=== PATIENT | male | born 1980 | race Caucasian/White ===

== ENCOUNTER 2016-10-08 09:31 | Inpatient (IN) | payer OTHER ==
--- NOTE | 2016-10-08 10:16 | ED ---
Psychiatric Complaint - HPI Summary HPI Summary: 35 M w/ PMH of depression presents with suicidal ideation. He states he was with a friend last night and they started to contemplate the idea of suicide. They did not come up with a plan. He says he is under more stress recently as his grandmother just based a way. The only medication he is on is ambien which he stopped many days ago due to weird dreams. He is a recovering alcoholic and his last drink was two nights ago. He is being [facility]. He also use marijuana. His sister has a history of bipolar - History Of Current Complaint Chief Complaint: EDMentalHealth Time Seen by Provider: 10/08/16 09:58 - Allergies/Home Medications Allergies/Adverse Reactions: Allergies Allergy/AdvReac Type Severity Reaction Status Date / Time No Known Allergies Allergy Verified 11/21/15 15:53 Home Medications: Home Medications Mirtazapine TAB* [Remeron TAB*] 30 mg PO DAILY 10/08/16 [History Confirmed 10/08] Zolpidem TAB* [Ambien TAB*] 5 mg PO BEDTIME PRN 10/08/16 [History Confirmed ] PMH/Surg Hx/FS Hx/Imm Hx Endocrine/Hematology History: Denies: Hx Anticoagulant Therapy, Hx Diabetes, Hx Thyroid Disease, Other Endocrine/Hematological Disorders Cardiovascular History: Denies: Hx Hypertension, Hx Pacemaker/ICD, Other Cardiovascular Problems/ Disorders Respiratory History: Denies: Hx Asthma, Hx Chronic Obstructive Pulmonary Disease (COPD), Other Respiratory Problems/Disorders GI History: Denies: Other GI Disorders History: Denies: Hx Renal Disease, Other Problems/Disorders Musculoskeletal History: Denies: Other Musculoskeletal History Sensory History: Denies: Other Sensory Impairments Opthamlomology History: Denies: Other Sensory Impairments Neurological History: Denies: Hx Dementia, Hx Seizures, Other Neuro Impairments/Disorders Psychiatric History: Reports: Hx Anxiety, Hx Attention Deficit Hyperactivity Disorder, Hx Depression, Hx Inpatient Treatment, Hx Community Mental Health Tx, Hx Suicide Attempt, Hx Substance Abuse - states polysubstance abuse daily Denies: Hx Eating Disorder, Hx of Violent Episodes Against Others, Other Psychiatric Issues/Disorders Infectious Disease History: Denies: Hx Clostridium Difficile, Hx Hepatitis, Hx Human Immunodeficiency Virus (HIV), Hx Shingles, Hx Tuberculosis, History Other Infectious Disease, Traveled Outside the [place] in Last 30 Days - Family History Known Family History: Positive: None, Other - depression-sister; EToH abuse - father, bipolar sister - Social History Alcohol Use: None Substance Use Type: Reports: None Smoking Status (MU): Former Smoker Have You Smoked in the Last Year: Yes Review of Systems Negative: Fever Negative: Chest Pain Negative: Shortness Of Breath Positive: Depressed All Other Systems Reviewed And Are Negative: Yes Physical Exam Appearance: Positive: Well-Appearing Skin: Positive: Warm, Dry Head/Face: Positive: Normal Head/Face Inspection Eyes: Positive: Normal, Conjunctiva Clear ENT: Positive: Normal ENT inspection, Pharynx normal, TMs normal Neck: Positive: Supple, Nontender Respiratory/Lung Sounds: Positive: Clear to Auscultation, Breath Sounds Present Cardiovascular: Positive: Normal, RRR Abdomen Description: Positive: Nontender, Soft Bowel Sounds: Positive: Present Psychiatric: Positive: Normal Diagnostics - Laboratory Result Diagrams: 10/08/16 10:05 10/08/16 10:05 Lab Statement: Any lab studies that have been ordered have been reviewed, and results considered in the medical decision making process. Course/Dx - Course Course Of Treatment: 35 M w/ PMH of depression presents with sucidial ideations. He said that is started last night after he met with a close friend who started to mention the thought of suicide. They did not come up with a plan. He is an alcholic who is trying to get into rehab. he is clear for mental health exam, MHE will admit voluntarily - Differential Dx/Clinical Impression Differential Diagnosis/HQI/PQRI: Positive: Anxiety, Depression, Suicidal Ideation Provider Diagnosis: Persistent mood [affective] disorder, unspecified Discharge - Discharge Plan Condition: Stable Disposition: ADMITTED TO [facility]
[2016-10-08 10:17] LABS: Urine Bacteria Absent (Absent); Urine Bilirubin Negative (Negative); Urine Glucose Negative (Negative); Urine Nitrite Negative (Negative)
[2016-10-08 10:27] LABS: Hematocrit 41 % (42-52); Hemoglobin 14.2 g/dl (14.0-18.0); Mean Corpuscular HGB Conc 35 g/dl (31-36); Mean Corpuscular Hemoglobin 31 pg (27-31); Mean Corpuscular Volume 89 fL (80-94); Mean Platelet Volume 7 um3 (7.4-10.4); Red Blood Count 4.59 10^6/ul (4.0-5.4); Red Cell Distribution Width 13 % (10.5-15); White Blood Count 10.3 10^3/ul (3.5-10.8)
[2016-10-08 10:29] LABS: Benzodiazepine Urine Screen None Detected (None Detect)
[2016-10-08 10:37] LABS: ALT 38 U/L (7-52); AST 50 U/L (13-39); Albumin 4.6 g/dL (3.2-5.2); Alkaline Phosphatase 54 U/L (34-104); Anion Gap 8 mmol/L (2-11); BUN/Creatinine Ratio 9.2 (8-20); Blood Urea Nitrogen 10 mg/dL (6-24); CO2 Carbon Dioxide 27 mmol/L (22-32); Calcium 9.2 mg/dL (8.6-10.3); Chloride 98 mmol/L (101-111); EGFR African American 99.6 (>60); EGFR Non-African American 77.4 (>60); Globulin 2.6 g/dL (2-4); Glucose 113 mg/dL (70-100); Potassium 3.2 mmol/L (3.5-5.0); Sodium 133 mmol/L (133-145); Total Protein 7.2 g/dL (6.4-8.9)
[2016-10-08 10:56] LABS: Acetaminophen < 15 mcg/mL; Alcohol < 10 mg/dL (<10); Salicylate < 2.50 mg/dL (<30)
[2016-10-08 11:04] LABS: TSH (Thyroid Stimulating Horm) 2.08 mcIU/mL (0.34-5.60)
[2016-10-08] MEDS ORDERED: Mouth Piece, Nicotine* 1 EACH CARTRIDGE INH PRN (17:14)
--- NOTE | 2016-10-08 18:25 | ED ---
I, Moises Gagnon, scribed for Emile Weiss MD on 10/08/16 at 1714 . Progress - Progress Note Progress Note: Pt signed paperwork for voluntary admission. Dx: depression with SI. Pt is stable and will be admitted to mental health unit. - Consult/PCP Time Called: 10:50 Course/Dx - Course Course Of Treatment: 35 M w/ PMH of depression presents with sucidial ideations. He said that is started last night after he met with a close friend who started to mention the thought of suicide. They did not come up with a plan. He is an alcholic who is trying to get into rehab. he is clear for mental health exam - Diagnoses Provider Diagnoses: Persistent mood [affective] disorder, unspecified The documentation as recorded by the jessicaibeKalin Karl accurately reflects the service I personally performed and the decisions made by me, Emile Weiss MD.
[2016-10-08] MEDS ORDERED: diPHENhydraMINE PO* 50 MG PO PRN (18:41)
[2016-10-08] MEDS: Mirtazapine TAB* 15 MG PO SCH (20:59)
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
[2016-10-09] MEDS: Nicotine Inhaler* 10 MG AMP INH PRN (16:11)
[2016-10-09] MEDS: Mirtazapine TAB* 15 MG PO SCH (21:02)
[2016-10-09] MEDS: Nicotine Patch Removal NOTE FOLLOW UP SCH (21:03)
[2016-10-10] MEDS: Nicotine PATCH 21 MG/24 HR* PATCH TRANSDERM SCH (09:31)
[2016-10-10] MEDS: Nicotine Inhaler* 10 MG AMP INH PRN (15:25)
[2016-10-10] MEDS ORDERED: Al Hydrox/Mg Hydrox/Simet LIQ* 30 ML UDC PO PRN (19:00)
[2016-10-10] MEDS ORDERED: Ibuprofen TAB* 400 MG PO ONE (19:00)
[2016-10-10] MEDS: Mirtazapine TAB* 15 MG PO SCH (20:13)
[2016-10-10] MEDS: Nicotine Patch Removal NOTE FOLLOW UP SCH (22:30)
[2016-10-11] MEDS: Nicotine Inhaler* 10 MG AMP INH PRN ×2 (08:28→18:03)
[2016-10-11] MEDS: Nicotine PATCH 21 MG/24 HR* PATCH TRANSDERM SCH (08:30)
[2016-10-11] MEDS: Nicotine Patch Removal NOTE FOLLOW UP SCH (20:45)
[2016-10-11] MEDS: Mirtazapine TAB* 15 MG PO SCH (20:45)
[2016-10-12] MEDS: Nicotine PATCH 21 MG/24 HR* PATCH TRANSDERM SCH (08:39)
[2016-10-12] MEDS: Nicotine Inhaler* 10 MG AMP INH PRN (08:39)
[2016-10-12 09:40] VITALS: BP 134/78
--- NOTE | 2016-10-12 12:41 | DS ---
Subjective - Subjective Service Types: 39326 Hosp DC Day Mgmt simple under 30 min Discharge Date: 10/12/16 Discharge Planning - Discharge Planning Medications: Current Medications Al Hydrox/Mg Hydrox/Simethicone (Maalox Plus*) 30 ml PO Q4H PRN PRN Reason: INDIGESTION Last Admin: 10/11/16 17:22 Dose: 30 ml Device (Nicotine Mouth Piece*) 1 each INH Q2H PRN PRN Reason: USE WITH NICOTINE CARTRIGE Last Admin: 10/09/16 16:10 Dose: 1 each Diphenhydramine HCl (Benadryl Po*) 50 mg PO BEDTIME PRN PRN Reason: SLEEP Mirtazapine (Remeron Tab*) 15 mg PO BEDTIME [facility] Last Admin: 10/11/16 20:45 Dose: 15 mg Nicotine (Nicotine Inhaler*) 10 mg INH Q2H PRN PRN Reason: CRAVING Last Admin: 10/12/16 08:39 Dose: 10 mg Nicotine (Nicotine Patch 21 Mg/24 Hr*) 1 patch TRANSDERM DAILY@0800 [facility] Last Admin: 10/12/16 08:39 Dose: 1 patch Pharmacy Profile Note (Nicotine Patch Removal Note*) 1 note FOLLOW UP 2100 [facility] Last Admin: 10/11/16 20:45 Dose: 1 note Discharge Planning: Prescriptions provided for discharge [] Yes [] No Follow up care details as per social work arrangements. Patient response to discharge plan: [] eager for discharge [] agreeable with discharge plan [] ambivalent about discharge [] disagrees with discharge today
--- NOTE | 2016-10-12 13:05 | PN ---
[facility]: Group Therapy Note - Service Type Service Type: 30027 Group Psychotherapy - Cognitive Behavioral Group Therapy ( CBT):Patient was attentive and participatory in CBT programming this morning, and remained in good behavioral control. Patient expressed positive insights regarding relevant treatment interventions and goals.
--- NOTE | 2016-10-12 13:05 | PN ---
Subjective - Subjective Service Type: 24044 Hosp care 15 min low complexity Subjective: LATE ENTRY FOR 10/11 Blaine reported feeling much better - free of ongoing emotional pain or suicidal ideation, able to cope, forward thinking. He expressed readiness for discharge and proactively worked on crisis bed calls. Objective - Appearance Appearance: Obese Hygiene: Normal Grooming: Well Kept - Behavior Psychomotor Activities: Normal - Attitude and Relatedness Attitude and Relatedness: Cooperative Eye Contact: Good - Speech Quality: Unpressured Latencies: Normal Quantity: Appropriate - Mood Patient's Decription of Mood: "Fine" - Affect Observed Affect: Non-labile Affect Consistent with: Euthymia - Thought Process Patient's Thought Process: Coherent, Goal Directed Thought Content: No Passive Wish, No Suicidal Planning, No Homicidal Ideation, No Paranoid Ideation - Sensorium Experiencing Hallucinations: No, Sensorium is Clear - Level of Consciousness Level of Consciousness: Alert - Impulse Control Impulse Control: Intact - Insight and Judgement Insight and Judgement: Fair Assessment - Assessment Merits Inpatient Hospitalization: Consolidate Improvements, For Discharge Planning Inpatient DSM-IV Dx: Alcohol use disorder with induced-mood symptoms; cannabis use disorder; adjustment disorder, not otherwise specified. Clinical Impression: 35-year male with a history of suicidal behavior, multiple psychiatric hospitalizations, chronic substance use disorders, and substance- induced crisis. He presented typically with recent alcohol and marijuana use and situational stressors and loss with the of his grandmother, his homelessness, and loss of a job. He was seeking help and had already made some arrangements to move towards rehab. Stabilized here. Clinically improved with resolution of distress and corrected mood symptoms and impairment. This was clearly a crisis of substance effects and adjustment. We can appropriately advance discharge planning. Medication management - restarted Remeron based on reconciliation of prior regimen. We will provide Benadryl on a p.r.n. basis for insomnia. Plan - Plan Treatment Plan: Name: BLAINE Bardales [place] Birthdate: 1980 [id number] Continued Medication Management: Consider Medication Medications: Current Medications Al Hydrox/Mg Hydrox/Simethicone (Maalox Plus*) 30 ml PO Q4H PRN PRN Reason: INDIGESTION Last Admin: 10/11/16 17:22 Dose: 30 ml Device (Nicotine Mouth Piece*) 1 each INH Q2H PRN PRN Reason: USE WITH NICOTINE CARTRIGE Last Admin: 10/09/16 16:10 Dose: 1 each Diphenhydramine HCl (Benadryl Po*) 50 mg PO BEDTIME PRN PRN Reason: SLEEP Mirtazapine (Remeron Tab*) 15 mg PO BEDTIME [facility] Last Admin: 10/11/16 20:45 Dose: 15 mg Nicotine (Nicotine Inhaler*) 10 mg INH Q2H PRN PRN Reason: CRAVING Last Admin: 10/12/16 08:39 Dose: 10 mg Nicotine (Nicotine Patch 21 Mg/24 Hr*) 1 patch TRANSDERM DAILY@0800 [facility] Last Admin: 10/12/16 08:39 Dose: 1 patch Pharmacy Profile Note (Nicotine Patch Removal Note*) 1 note FOLLOW UP 2100 [facility] Last Admin: 10/11/16 20:45 Dose: 1 note - Discharge Plan Discharge Plan: Drug/Alcohol Rehab
--- NOTE | 2016-10-12 13:13 | DS ---
Subjective - Subjective Service Types: 21209 [facility] Day Mgmt simple under 30 min Discharge Date: 10/12/16 Subjective: Blaine expressed readiness for discharge. His plan is to return home and work with [facility] on next treatment options. He affirmed he is safe, free of emotional pain or inapproprate anxiety. He denied any suicidal ideation. He said he's motivated for sobriety. We discussed medication options - he sees no need for any psychiatric medicines, but was interested in Antabuse based on its reputation. I explained it's i/r/b and profile, with guidance on need to avoid alcohol in all products. He requested a prescription. He said he sees no barriers to routine or emergency help. Objective - Appearance Appearance: Obese Hygiene: Normal Grooming: Well Kept - Behavior Psychomotor Activities: Normal - Attitude and Relatedness Attitude and Relatedness: Cooperative Eye Contact: Good - Speech Quality: Unpressured Latencies: Normal Quantity: Appropriate - Mood Patient's Decription of Mood: "Good" - Affect Observed Affect: Non-labile Affect Consistent with: Euthymia - Thought Process Patient's Thought Process: Coherent, Goal Directed Thought Content: No Passive Wish, No Suicidal Planning, No Homicidal Ideation, No Paranoid Ideation - Sensorium Experiencing Hallucinations: No, Sensorium is Clear - Level of Consciousness Level of Consciousness: Alert - Impulse Control Impulse Control: Intact - Insight and Judgement Insight and Judgement: Good Treatment Course & Assessment Clinical Course & Impression: 35-year male with a history of suicidal behavior, multiple psychiatric hospitalizations, chronic substance use disorders, and substance- induced crisis. He presented typically with recent alcohol and marijuana use and situational stressors and loss with the of his grandmother, his homelessness, and loss of a job. He was seeking help and had already made some arrangements to move towards rehab. 10/12/16 Clear for release. Blaine rapidly stabilized here. Clinically he improved with full resolution of distress and corrected mood symptoms and impairment. This was clearly a crisis of substance effects and adjustment. Medication management - we initially restarted Remeron based on reconciliation of prior regimen - but lack of clear indication supports stopping it. We provided Benadryl on a p.r.n. basis for insomnia and a prescription for Antabuse to support sobriety. Blaine is appropriate for outpatient level of care now. Risk concern centered on suicidal ideation. His suicide risk is chronically elevated due to his profile and history. Acute risk is considered low as his symptom burden is minimal, his behavior and ideation benign, and acute impairing factors have resolved. Clear for Discharge: Adequate Clinical Respons, Acceptable Safety Profile, Low Utility of In Care Inpatient DSM-IV Dx: Alcohol use disorder with induced-mood symptoms; cannabis use disorder; adjustment disorder, not otherwise specified. Discharge Planning - Discharge Planning Discharge Plan: Drug[facility]cohol [facility] - [facility] [place] Recommendations for Continuing Care: Medication Management, Substance Abuse Counseling Medications: Current Medications Antabuse 250mg daily Discharge Planning: Prescriptions provided for discharge [x] Yes [] No Follow up care details as per social work arrangements. Patient response to discharge plan: [x] eager for discharge [] agreeable with discharge plan [] ambivalent about discharge [] disagrees with discharge today
[2016-10-13] MEDS ORDERED: Disulfiram TAB* 250 MG PO SCH (09:00)
== END 2016-10-12 14:36 | disposition home or self-care (01) | DRG 775 ==
LOC: ED 09:31 → BSU 17:13
PROVIDERS: ADMIT Psychiatry & Neurology Psychiatry; ATTEND Psychiatry & Neurology Psychiatry
DX: F10.14 Alcohol abuse with alcohol-induced mood disorder (principal); R45.851 Suicidal ideations; F12.10 Cannabis abuse, uncomplicated; F43.20 Adjustment disorder, unspecified; F17.210 Nicotine dependence, cigarettes, uncomplicated; Z81.1 Family history of alcohol abuse and dependence; Z81.8 Family history of other mental and behavioral disorders; Z59.0 Homelessness
CPT/HCPCS: 36415; 80053; 80307; 80320; 80329; 81003; 81015; 84443; 85025; 90853; 99222; 99231; 99238; A9270-GY; G0480